=== PATIENT | male | born 1990 | race Caucasian/White ===

== ENCOUNTER 2016-06-21 23:28 | Emergency (ER) | payer SELFPAY ==
--- NOTE | ~2016-06-21 | CT2 ---
[facility] A Service of [facility] RADIOLOGY TEXT RESULTS PATIENT: CHEL FALCON LOCATION: SED : 90 UNIT #: [id number] AGE: [address]: Germán Morley MD SEX: M ORDER DR: [id number] [place] [id number] E MR#: [id number] #: [id number] NAME: CHEL FALCON : 1990 SEX: M STUDY DATE/TIME: 06/22/2016 0:48 UNIT: SED ROOM: STUDY DESCRIPTION: CT Abd and Pelv W Cont Attending Physician: Germán Morley M.D. Ordering Physician: Germán Morley M.D. Primary Care Physician: Luca Raymundo M.D. MEDICAL IMAGING REPORT This report is preliminary unless electronic signature is present. EXAM CT abdomen and pelvis with IV contrast COMPARISON None INDICATIONS 26-year-old male with epigastric abdominal pain, nausea and emesis and generalized weakness for 5 hours today. FIND[address] This CT exam was performed with one or more of the following radiation dose reduction techniques: Automatic exposure control, adjustment of mA and/or kV according to patient size, and iterative reconstruction. Axial CT imaging of the abdomen and pelvis was performed after IV administration of 100 mL of Isovue-370. Coronal and sagittal reformats were constructed. Moderate posterior disc protrusion at L4-L5 with small posterior protrusion L5-S1. No acute fractures or suspicious osseous lesions. Residual thymic tissue is seen in the anterior mediastinum, incompletely imaged. Evaluation of the lung bases is limited by motion. Noncalcified 3-mm nodule in the right lower lobe. Findings suggestive of hepatic steatosis. Detailed evaluation of the upper abdominal organs is significantly limited by motion. Motion artifact is seen through the liver, spleen, pancreas, gallbladder and loops of small bowel in the upper abdomen. Urinary bladder is collapsed, limiting evaluation. Prostate gland is unremarkable. There is no evidence of bowel obstruction. Findings consistent with hepatic steatosis. No definite abnormality of the liver, gallbladder, pancreas, spleen, adrenal glands or kidneys. Evaluation of the kidneys is also limited by motion. No hydronephrosis or hydroureter. No evidence of renal or ureteral calculus. No free fluid or STS. [facility] A Service of [facility] RADIOLOGY TEXT RESULTS PATIENT: CHEL FALCON LOCATION: SED : 90 UNIT #: [id number] AGE: [address]: Germán Morley MD SEX: M ORDER DR: pneumoperitoneum. There is no evidence of acute appendicitis. Abdominal aorta is normal in course and caliber, with patency of its main branches. No evidence of venous thrombosis. No adenopathy is seen in the abdomen or pelvis. IMPRESSION 1. Evaluation of the abdomen is significantly limited by motion. No acute abnormalities are seen. 2. Small posterior disc protrusions at L4-L5 and L5-S1. 3. 3 mm noncalcified nodule in the right lower lobe. In the absence of known malignancy, this is most consistent with a benign granuloma. Clinical correlation recommended. 4. Hepatic steatosis. Dictated by... Sean Elmore M.D. THIS IS AN ELECTRONICALLY VERIFIED REPORT Sean Elmore M.D. at 06/27/2016 8:53 AM RADHA/cindy TD: 06/22/2016 03:34 JOB #: [id number] MEDICAL IMAGING REPORT
[~2016-06-21 23:28] MED LIST: ALBUTEROL17 GM INH; AMOXICILLIN; AMOXICILLIN PO; AUGMENTIN875 M1 PO; BACTRIM DS TABL1 TA1 PO; BENADRYL25 MG PO; DICLOFENAC PO; DOXYCYCLINE HY100 M1 PO; FIORICET 50-321 EACH PO; FIORINAL CAPSUL1 CAP PO; FLEXERIL10 M1 PO; FLEXERIL10 MG PO; FLOXIN10 ML AS; HYCODAN60 ML 5MG/ PO; HYDROCODONE-APA1 T57 PO; IBUPROFEN PO; IBUPROFEN800 MG PO; KEFLEX500 MG PO; LORTAB 10-5001 EACH PO; LORTAB 5-325 M1 EACH PO; LORTAB 5/500 TA1 TA1 PO; MOTRIN400 M1 PO; MUCINEX DM1 TAB.SR . PO; NAPROSYN500 MG PO; NO MEDICATIONS; PHENERGAN DM1 ML PO; PHENERGAN W/CO120 ML PO; PHENERGAN25 M1 PO; PHENERGAN25 MG PO; PREDNISONE PO; PROMETHAZINE D118 ML PO; PYRIDIUM PO; REGLAN10 MG PO; RONDEC-DM SYRU120 ML PO; SINUS; TAMIFLU75 M1 PO; TESSALON200 MG PO; TYLENOL COLD; VIBRAMYCIN100 M1 PO; VICODIN 5/1 TAB 5/50 PO; VOLTAREN75 MG PO; ZITHROMAX PO
[2016-06-22 00:09] LABS: BASOPHIL# 0.1 X10e3 (0-0.3); BASOPHIL% 0.5 % (0-2.5); EOSINOPHIL# 0.3 X10e3 (0-0.7); EOSINOPHIL% 1.4 % (0.0-7.0); HEMATOCRIT 52.2 % (38.0-50.0); HEMOGLOBIN 17.6 gm/dL (13.0-16.0); LYMPHOCYTE# 0.8 X10e3 (1.0-3.5); LYMPHOCYTE% 3.6 % (17.0-45.0); MEAN CELL VOLUME 85.1 FL (83-96); MEAN CORPUSCULAR HEMOGLOBIN 28.7 PG (28-34); MEAN CORPUSCULAR HGB CONC 33.8 g/dL (30-36); MONOCYTE# 1.6 X10e3 (0-1.0); MONOCYTE% 7.2 % (3.0-12.0); NEUTROPHIL% 87.3 % (40-75); PLATELET COUNT 303 X10e3 (140-420); RED BLOOD COUNT 6.13 X10e (3.90-5.60); WHITE BLOOD COUNT 21.7 X10e3 (4.0-10.5)
[2016-06-22 00:11] LABS: DIFF IND NO
[2016-06-22 00:25] LABS: BLOOD UREA NITROGEN 17 mg/dL (9-23); BUN/CREATININE RATIO 15.45; CALCIUM SERUM 9.5 mg/dL (8.4-10.2); CARBON DIOXIDE 24 mmol/L (22-31); CHLORIDE 100 mmol/L (100-111); CREATININE SERUM 1.1 mg/dL (0.6-1.4); GLOM FILT RATE Estimated ABOVE60 mL/min (>60); GLUCOSE FASTING 111 mg/dL (70-110); LIPASE 17 U/L (22-51); POTASSIUM 3.8 mmol/L (3.5-5.1); SODIUM 137 mmol/L (135-145)
[2016-06-22 02:54] LABS: URINE SOURCE CLEAN CATCH
[2016-06-22 02:56] LABS: URINE APPEARANCE CLEAR; URINE BILIRUBIN NEG (NEG); URINE BLOOD TRACE-INTACT (NEG); URINE COLOR YELLOW; URINE GLUCOSE NEG (NORM); URINE KETONE 1+ (NEG); URINE LEUKOCYTE ESTERASE NEG (NEG); URINE NITRATE NEG (NEG); URINE PROTEIN NEG (NEG); URINE UROBILINOGEN 0.2 MG/DL (NORM)
[2016-06-22 02:57] LABS: MICRO INDICATED? YES
[2016-06-22 02:59] LABS: CULTURE INDICATED? NO; URINE BACTERIA NEG (NEG); URINE MUCUS PRESENT; URINE SQUAMOUS EPITHELIAL CELL FEW /[HPF]; URINE WBC NEG /[HPF] (0-5)
== END 2016-06-22 03:31 | disposition home or self-care (01) ==
LOC: SED 23:28
PROVIDERS: Emergency Medicine
DX: E86.0 Dehydration (principal); J45.909 Unspecified asthma, uncomplicated
CPT/HCPCS: 74177; 80048; 81003; 83690; 85025; 96361; 96374; 96375; 96376; 99284; J2270; J2405; J2550; Q9967

== ENCOUNTER 2016-10-28 18:04 | Emergency (ER) | payer OTHER ==
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
== END 2016-10-28 20:40 | disposition home or self-care (01) ==
LOC: SED 18:04
DX: S16.1XXA Strain of muscle, fascia and tendon at neck level, initial encounter (principal); M25.561 Pain in right knee; R03.0 Elevated blood-pressure reading, without diagnosis of hypertension; J45.909 Unspecified asthma, uncomplicated; G43.909 Migraine, unspecified, not intractable, without status migrainosus; V43.52XA Car driver injured in collision with other type car in traffic accident, initial encounter
CPT/HCPCS: 29125; 29505; 73562; 96372; 99283; J1885; J2360